=== PATIENT | male | born 1980 | race Caucasian/White ===

== ENCOUNTER 2017-05-26 13:03 | Emergency (ER) | payer OTHER ==
[~2017-05-26] VITALS: Ht 188 cm; Wt 112.0 kg
[2017-05-26 13:05] VITALS: Ht 188 cm; Wt 112.0 kg
[2017-05-26] MEDS ORDERED: SOD CHLORIDE 0.9% 1,000 ML IV STA (13:19)
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
[2017-05-26] MEDS ORDERED: HYDROmorphONE 2 MG/ML SYG IV ONE (13:30)
[2017-05-26] MEDS ORDERED: ONDANSETRON 4 MG INJ IV ONE (13:30)
[2017-05-26] MEDS ORDERED: FAMO20TA18 PO (13:33)
[2017-05-26 13:48] LABS: BASOPHIL # 0.1 10^3/ul (0.0-0.1); BASOPHILS % 0.6 % (0.0-2.0); EOSINOPHILS # 0.2 10^3/ul (0.0-0.5); EOSINOPHILS % 2.3 % (0.0-7.0); HEMATOCRIT 48.9 % (42.0-52.0); HEMOGLOBIN 16.3 g/dl (14.0-18.0); LYMPHOCYTES # 2.1 10^3/ul (0.8-2.9); MEAN CORPUSCULAR HGB CONC 33.3 g/dl (32.0-37.0); MEAN PLATELET VOLUME 9.3 fl (7.4-10.4); MONOCYTE # 0.7 10^3/ul (0.3-0.9); NEUTROPHIL # 6.6 10^3/ul (1.6-7.5); NEUTROPHILS % 67.7 % (39.0-77.0); PLATELET COUNT 285 10^3/UL (140-415); RED BLOOD COUNT 5.62 10^6/ul (4.70-6.10); RED CELL DISTRIBUTION WIDTH 11.9 % (11.5-14.5); WHITE BLOOD COUNT 9.8 10^3/ul (4.8-10.8)
[2017-05-26 14:08] LABS: INR 0.93; PROTIME 12.5 Sec (12.2-14.2)
[2017-05-26 14:09] LABS: PARTIAL THROMBOPLASTIN TIME 30.1 Sec (25.0-35.0)
[2017-05-26 14:11] LABS: ANION GAP 10 (8-16); BLOOD UREA NITROGEN 17 mg/dl (7-20); CALCIUM 9.5 mg/dl (8.4-10.2); CARBON DIOXIDE 30 mmol/L (21-31); CHLORIDE 106 mmol/L (97-110); CREATININE 1.18 mg/dl (0.61-1.24); GLUCOSE 115 mg/dl (70-220); POTASSIUM 4.4 mmol/L (3.5-5.1); SODIUM 142 mmol/L (135-144)
[2017-05-26 14:23] LABS: ETHANOL < 10.0 mg/dl
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
[2017-05-26] MEDS ORDERED: SOD CHLORIDE 0.9% 100 ML ONE (15:08)
[2017-05-26] MEDS ORDERED: IOHEXOL 300MG/ML 150 ML BTL ONE (15:08)
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
[2017-05-26] MEDS ORDERED: HYDR-902 PO (16:50)
[2017-05-26] MEDS ORDERED: ONDA4TAB14 PO (16:50)
[2017-05-26] MEDS ORDERED: IBUP800T25 PO (16:50)
[2017-05-26 17:14] LABS: OPIATES Positive (NEGATIVE)
[2017-05-26 17:17] VITALS: BP 118/69; PULSE 77; RESP 18
[2017-05-26 17:28] LABS: BARBITURATES Negative (NEGATIVE); BENZODIAZEPINES Negative (NEGATIVE); CANNABINOIDS Negative (NEGATIVE); COCAINE Negative (NEGATIVE)
== END 2017-05-26 17:29 | disposition home or self-care (01) ==
LOC: E/R 13:03
DX: S20.219A Contusion of unspecified front wall of thorax, initial encounter (principal); S80.02XA Contusion of left knee, initial encounter; S80.01XA Contusion of right knee, initial encounter; F17.210 Nicotine dependence, cigarettes, uncomplicated; R40.4 Transient alteration of awareness; V49.40XA Driver injured in collision with unspecified motor vehicles in traffic accident, initial encounter
CPT/HCPCS: 70450; 71260; 73562; 74177; 80048; 80306; 80307; 85025; 85610; 85730; 93005; 96374; 96375; J1170; J2405; J7030; Q9967; Z7502; Z7610